=== PATIENT | female | born 1950 | race Caucasian/White ===

== ENCOUNTER 2018-04-26 11:05 | Outpatient (CLI) | payer OTHER | END 2018-04-26 11:06 | disposition home or self-care (01) | LOC: BICMAMMO 11:05 | PROVIDERS: ATTEND Family Medicine | DX: Z12.31 Encounter for screening mammogram for malignant neoplasm of breast (principal); Z80.3 Family history of malignant neoplasm of breast | CPT/HCPCS: 77063; 77067 ==

== ENCOUNTER 2020-09-24 13:09 | Outpatient (CLI) | payer MEDICARE | END 2020-09-24 13:10 | disposition home or self-care (01) | LOC: BICMAMMO 13:09 | PROVIDERS: ATTEND Family Medicine | DX: Z12.31 Encounter for screening mammogram for malignant neoplasm of breast (principal); N64.89 Other specified disorders of breast; Z80.3 Family history of malignant neoplasm of breast | CPT/HCPCS: 77063; 77067 ==

== ENCOUNTER 2023-01-25 10:14 | Outpatient (CLI) | payer MEDICARE | END 2023-01-25 10:15 | disposition home or self-care (01) | LOC: BICMAMMO 10:14 | PROVIDERS: ATTEND Family Medicine | DX: Z12.31 Encounter for screening mammogram for malignant neoplasm of breast (principal); Z80.3 Family history of malignant neoplasm of breast | CPT/HCPCS: 77063; 77067 ==

== ENCOUNTER 2024-02-08 12:39 | Outpatient (CLI) | payer MEDICARE | END 2024-02-08 12:40 | disposition home or self-care (01) | LOC: BICMAMMO 12:39 | PROVIDERS: ATTEND Family Medicine | DX: Z12.31 Encounter for screening mammogram for malignant neoplasm of breast (principal); N63.13 Unspecified lump in the right breast, lower outer quadrant; Z80.3 Family history of malignant neoplasm of breast | CPT/HCPCS: 77063; 77067 ==

== ENCOUNTER 2024-02-23 13:58 | Outpatient (CLI) | payer MEDICARE | END 2024-02-23 13:59 | disposition home or self-care (01) | LOC: BICMAMMO 13:58 → BICULT 13:59 | PROVIDERS: ATTEND Family Medicine | DX: N63.20 Unspecified lump in the left breast, unspecified quadrant (principal) ==